=== PATIENT | male | born 1955 | race Caucasian/White ===

== ENCOUNTER 2024-02-20 18:32 | Emergency (ER) | payer MEDICARE, OTHER, SELFPAY ==
[2024-02-20] VITALS (15 sets, daily range): BP systolic 84–120; BP diastolic 59–91
--- NOTE | 2024-02-20 19:10 | ED.GENMED ---
History of Present Illness
General
Chief Complaint: Dizziness
Source: patient
Exam Limitations: none
Time Seen by Provider: 02/20/24 18:54
Nursing documentation reviewed up to this point in time: agreed with
Travel History
Have you had any contact with someone who has COVID-19?: No
Do you have any symptoms of coronavirus? Fever > 100 degrees, chills, cough, shortness of breath, sore throat, loss of taste or smell, muscle aches, or headache?: No
History of Present Illness
History of Present Illness:
68-year-old male with a past medical history of hyperlipidemia, hypothyroidism, CAD status post bypass who presents to the emergency room with his and son for evaluation after an episode of nausea and vomiting, lightheadedness. Patient reports
that he was in his normal state of health today. He says around 3 to 4 PM he was with his brother working on a car in the [email or web address]. He says that he was eating pizza and drinking a few beers. He says that all of a sudden he began to feel nauseated
had an upset stomach. He says that he had a few episodes of nonbloody vomiting. He says that he sat down on a chair and began to feel dizzy and apparently according to family he passed out for a second although he does not believe he passed out.
He did not fall or hit his head. He says he did not have any associated chest pain, palpitations, shortness of breath. He did not have any headache. No abdominal or flank pain�only reports nauseated feeling. He says that this episode lasted for
about 30 to 60 minutes and has completely resolved. He came to the emergency room be evaluated. Here in the emergency room he has no symptoms and says that he feels well aside from being hungry.
Review of Systems
Review of Systems
All Other Systems: ROS reviewed and negative except as documented in HPI and ROS
Constitutional: Denies fever
Respiratory: Denies cough or trouble breathing
Cardiac: Reports syncope; Denies chest pain or palpitations
ABD/GI: Reports nausea and vomiting; Denies abdominal pain
: Denies flank pain
Musculoskeletal: Denies neck pain or back pain
Neurological: Denies headache, weakness or numbness
Phy Exam
Physical Exam
Physical Exam:
General: Awake, alert, oriented x3; no acute distress
Head: Normocephalic, atraumatic
Eyes: Conjunctiva normal, EOMI, pupils equal round and reactive to light bilateral
Throat: Airway intact, handling secretions
Neck: Trachea midline, supple without meningismus
Lungs: Clear to auscultation bilaterally, no wheezing, rales, rhonchi
Heart: Regular rate and rhythm, no murmurs, gallops, or rubs
Abd: Soft, non distended, nontender with no palpable masses
Neuro: Cranial nerves intact, speech fluid, no motor or sensory deficits
Skin: no rash
Extremities: No edema in extremities, equal pulses in all extremities
Scores
Heart Failure Risk
Heart Failure Risk Score: Not Applicable
Heart Score for Chest Pain Patients
STEMI patient?: Not applicable
Withdrawal Assessment of Alcohol
Withdrawal Assessment Completed?: Not applicable
Course
Orders/Labs/Results
Orders:
Orders
02/20/24 18:37
Electrocardiogram (*1) Urgent
Reason for Study: Chest Pain
EKG- Treatment ONCE
02/20/24 19:12
Complete Blood Count/With Diff Urgent
Comprehensive Metabolic Panel Urgent
Lipase Urgent
Troponin I Urgent
02/20/24 19:13
0.9% Sodium Chloride 1000 ml [Nss] 1,000 ml IV BOLUS
02/20/24 22:03
Troponin I Urgent
Abnormal Lab Results
02/20/24
19:12
WBC 12.5 H 10^3/uL
(4.8-10.8)
RBC 4.15 L 10^6/uL
(4.70-6.10)
Hgb 12.8 L g/dL
(13.0-18.0)
Hct 36.4 L %
(39.0-52.0)
Abs Immat Gran (auto) 0.1 H 10^3/uL
(0-0.05)
Absolute Neuts (auto) 10.5 H 10^3/uL
(1.4-6.5)
Neutrophils % 84.0 H %
(42.2-75.2)
Lymphocytes % 10.7 L %
(20.5-51.1)
BUN 22 H mg/dl
(9-20)
Glucose 132 H mg/dl
(70-99)
ALT 67 H U/L
(0-50)
02/20/24 19:12
02/20/24 19:12
Vital Signs
Initial and Last Documented VS:
Initial Vital Signs
Temp Pulse Resp BP Pulse Ox
36.4 C 57 16 107/91 96
02/20/24 18:33 02/20/24 18:33 02/20/24 18:33 02/20/24 18:33 02/20/24 18:33
Last Documented Vital Signs
Temp Pulse Resp BP Pulse Ox
36.4 C 60 12 111/84 99
02/20/24 18:33 02/20/24 21:00 02/20/24 21:00 02/20/24 21:00 02/20/24 20:30
MDM/Problems Addressed
Differential Diagnosis Includes:
Gastritis, pancreatitis, GERD, anginal equivalent, dysrhythmia, vasovagal episode
MDM/Problems Addressed:
68-year-old male presents for evaluation after an episode of nausea and vomiting while he was eating pizza and drinking beer; vomiting was followed by presyncope/syncopal episode. He feels fine now, symptoms lasted 30 to 60 minutes and have
completely resolved. His vital signs are normal. Physical exam as above. Will plan to check labs including a CBC and a CMP, lipase, troponin. EKG shows sinus rhythm no STEMI. Will monitor on telemetry. Will reassess after the above.
Labs reviewed: CBC shows marginal leukocytosis likely demargination, CMP no clinically significant abnormalities. Troponin undetectable x 1. Continue to monitor. Patient remains asymptomatic with reassuring vitals.
Repeat troponin undetectable�patient has been observed here for greater than 4 hours no additional symptoms. I suspect it was likely an episode of gastritis related to alcohol and pizza consumption and that he had episode of vasovagal syncope.
Patient prefers to go home and I think this is reasonable at this point in time�no clear indication for admission. I did speak to him about return precautions will start on a PPI. I advised him to follow-up with cardiology just given his history.
All questions answered.
Chronic conditions affecting care:
CAD status post CABG
*Pulse Oximetry
Patient hypoxic: no
*EKG
Interpreted by ED Provider?: Yes
Heart Rate: 64
Rate: normal
Rhythm: sinus
[place]: normal axis
Interval: normal interval
QRS Pattern: normal QRS
Ischemia: non-specific ST changes
*Critical Care Note
Total Time (30-74mins, 75-104mins- exclusive of procedures): Not Applicable
Data Reviewed
Source: patient and family
ED Attending Note
-
Portions of this chart may have been created with voice recognition software.� Occasional wrong word or��sound alike� substitutions may have occurred due to the inherent limitations of voice recognition software.
Discharge Plan
Departure
Patient Disposition: Home (Routine Discharge)
Date of Disposition: 02/20/24
Time of Disposition: 22:39
Patient with high blood pressure during this ER visit?: No
Discharge Problem:
Gastritis, Syncope
Instructions: Gastritis (DC), Syncope (Fainting) (DC)
Prescriptions:
New
pantoprazole [Protonix] 40 mg tablet,delayed release (DR/EC)
40 mg PO DAILY Qty: 30 0RF
Referrals:
Conner Manning MD [Active] - Call in 1-3 days for appt (Cardiology)
Noel Harris MD [Family Provider] - Follow up in 2-3 days
Activity Restrictions/Additional Instructions:
Thank you for visiting the Emergency Department at [facility].
1. Please schedule a follow up appointment as directed. Call first thing tomorrow morning to make an appointment.
2. If indicated, please take your medications as instructed and indicated on discharge paperwork.
3. If any of your symptoms do not improve, or persist, or become more severe within 6-12 hours, please return to the emergency department for further care.
4. Please return to the emergency department if you develop a headache, neck pain/stiffness, fever greater than 100.4F, chest pain, shortness of breath, persistent nausea, vomiting, slurred speech, difficulty walking, numbness/tingling, weakness,
signs of infection or any other symptoms that are worrisome to you.
Please call [phone] if you have any questions.
Interventions
Interventions:
*Risk Screen - Suicide Last Done: 02/20/24 18:33
*General Assessment Last Done: 02/20/24 18:33
*Neglect/Abuse Screening Last Done: 02/20/24 18:33
ED- Neurological Assessment Last Done: 02/20/24 19:08
ED Swallowing Screen Last Done: 02/20/24 21:29
Discharge Date and Time
Print Language: SWEDISH
[2024-02-20] MEDS: NSS 1000 IV (19:14)
[2024-02-20 19:20] LABS: % Basophils 0.2 % (0-2); % Eosinophils 0.4 % (0-6); % Immature Granulocytes 0.5 % (0-0.5); % Lymphocytes 10.7 % (20.5-51.1); % Monocytes 4.2 % (1.7-9.3); Absolute Eosinophils 0.1 10^3/uL (0-0.7); Absolute Immature Granulocytes 0.1 10^3/uL (0-0.05); Absolute Lymphocytes 1.3 10^3/uL (1.2-3.4); Absolute Monocytes 0.5 10^3/uL (0.1-0.6); Absolute Neutrophils 10.5 10^3/uL (1.4-6.5); Hematocrit 36.4 % (39.0-52.0); Hemoglobin 12.8 g/dL (13.0-18.0); Mean Corp Hgb Conc. 35.2 g/dL (33.0-37.0); Mean Corpuscular Hgb 30.8 pg (27.0-31.0); Mean Corpuscular Volume 87.7 fL (80.0-94.0); Mean Platelet Volume 9.3 fL (7.4-10.4); Nucleated Red Blood Cells % 0 % (-); Platelet Count 250 10^3/uL (130-400); Red Blood Cell Count 4.15 10^6/uL (4.70-6.10); Red Cell Dist. Width 12.5 % (11.5-14.5); White Blood Cell Count 12.5 10^3/uL (4.8-10.8)
[2024-02-20 19:38] LABS: ALT (SGPT) 67 U/L (0-50); AST (SGOT) 54 U/L (17-59); Albumin 4.5 g/dl (3.5-5.0); Alkaline Phosphatase 87 U/L (38-126); Blood Urea Nitrogen 22 mg/dl (9-20); Calcium 9.6 mg/dl (8.4-10.2); Carbon Dioxide 30 mmol/L (22-30); Chloride 99 mmol/L (98-107); Glucose 132 mg/dl (70-99); Lipase 34 U/L (23-300); Sodium 136 mmol/L (135-145); Total Bilirubin 0.5 mg/dl (0.2-1.3); Total Protein 7.3 g/dl (6.3-8.2); eGFR > 60.00
[2024-02-20 19:45] LABS: Troponin I < 0.012 ng/ml
[2024-02-20 22:31] LABS: Troponin I < 0.012 ng/ml
== END 2024-02-20 22:57 | disposition home or self-care (01) ==
LOC: EMR 18:32
PROVIDERS: EMERGENCY PHYSICIAN Emergency Medicine; FAMILY PHYSICIAN Family Medicine
DX: K29.70 Gastritis, unspecified, without bleeding (principal); R55 Syncope and collapse; E78.00 Pure hypercholesterolemia, unspecified; E03.9 Hypothyroidism, unspecified; I25.10 Atherosclerotic heart disease of native coronary artery without angina pectoris; Z95.1 Presence of aortocoronary bypass graft
CPT/HCPCS: 99283; 96360; 80053; 83690; 84484; 85025; 93005